=== PATIENT | female | born 1955 | race Caucasian/White ===

== ENCOUNTER → 2018-11-22 | Outpatient (CLI) | payer OTHER ==
[~2018-11-22] MED LIST: ACYC400 PO; TRAM50 PO; VENL150ER PO
== END ==
LOC: LAB EV 11:19 → LAB SHORT 11:19
DX: N39.0 Urinary tract infection, site not specified (principal)
CPT/HCPCS: 87086

== ENCOUNTER → 2019-02-05 | Outpatient (CLI) | payer OTHER | LOC: LAB SHORT 08:00 → LAB 08:00 | DX: R10.9 Unspecified abdominal pain (principal) | CPT/HCPCS: 87086 ==

== ENCOUNTER → 2022-06-11 | Outpatient (CLI) | payer OTHER ==
[2022-06-11 14:26] LABS: Source, Urine Voided
[2022-06-11 16:16] LABS: Microalb/Creat Ratio UR, Rand 9.605 mg/g (0.000-30.000); Microalbumin, Random Urine 21.9 mg/L (0.000-20.000)
[2022-06-11 16:20] LABS: Calcium Oxalate Crystals Mod /hpf
[2022-06-11 16:22] LABS: Bacteria Mod /hpf; Red Blood Cells, Urine 0-2 /hpf (0-2); Squamous Epithelial Cells Few /hpf (Few)
== END | disposition home or self-care (01) ==
LOC: LAB 14:24 → LAB SHORT 14:24
PROVIDERS: Family Medicine
DX: R80.8 Other proteinuria (principal)
CPT/HCPCS: 81015; 82043; 82570